=== PATIENT | female | born 2000 | race African-American/Black ===

== ENCOUNTER 2023-12-08 01:12 | Emergency (ER) | payer MEDICAID ==
[~2023-12-08] VITALS: Ht 165.1 cm; Wt 86.2 kg
[2023-12-08 01:16] VITALS: BP 147/95; PULSE 93; RESP 18; TEMP 97.1; O2SAT 98
[2023-12-08] MEDS: ACETAMINOPHEN EXTRA STRENGTH 500 MG TAB PO ONE (02:41)
[2023-12-08] MEDS ORDERED: ACET-10509 PO (03:54)
[2023-12-08] MEDS: KETOROLAC 30 MG/ML VIAL IM ONE (04:22)
== END 2023-12-08 05:06 | disposition home or self-care (01) ==
LOC: MED 01:12
DX: S09.90XA Unspecified injury of head, initial encounter (principal); J45.909 Unspecified asthma, uncomplicated; Z79.899 Other long term (current) drug therapy; X58.XXXA Exposure to other specified factors, initial encounter; Y93.89 Activity, other specified; Y92.89 Other specified places as the place of occurrence of the external cause; Y99.8 Other external cause status
CPT/HCPCS: 70450; 96372; 99285; J1885